=== PATIENT | male | born 1980 | race African-American/Black ===

== ENCOUNTER 2018-03-09 08:19 | Emergency (ER) | payer OTHER ==
[~2018-03-09] VITALS: Ht 167.6 cm; Wt 65.9 kg
[2018-03-09] MEDS ORDERED: HTN PO (08:20)
[2018-03-09 09:40] VITALS: BP 147/96
== END 2018-03-09 09:40 | disposition left against medical advice (07) ==
LOC: EMS 08:20
DX: R42 Dizziness and giddiness (principal); I10 Essential (primary) hypertension; F17.210 Nicotine dependence, cigarettes, uncomplicated; D64.9 Anemia, unspecified; Z86.73 Personal history of transient ischemic attack (TIA), and cerebral infarction without residual deficits; Z79.899 Other long term (current) drug therapy
CPT/HCPCS: 93005; 99283